=== PATIENT | male | born 1995 | race Two or more races ===

== ENCOUNTER 2017-11-08 23:12 | Emergency (ER) | payer OTHER ==
[2017-11-08] MEDS ORDERED: ALBUTEROL INH PREPACK MDI TAKEHOME ONE (23:27)
--- NOTE | 2017-11-08 23:30 | EDPHY ---
H & P Stated Complaint: SOB, heart feels off Time Seen by Provider: 11/08/17 23:22 HPI/ROS: Chief Complaint: Shortness of breath, cough, chest tightness HPI: 21-year-old male presenting with 2 weeks of worsening tightness in his chest with a dry nonproductive cough. Patient states that he had a similar episode a few years ago and was given an inhaler. Cough is dry nonproductive. No fevers or chills. She nasal after removed from increasing tightness in his chest. No dyspnea on exertion. Does not have a family history of coronary artery disease or sudden cardiac . No leg pain or swelling. No periods of immobility. Chest tightness is about a 2/10 right now. ROS: 10 point Review of Systems is negative except as noted in the HPI. PMH: Denies Social History: No smoking, no alcohol, no recreational drug use Family History: non-contributory Physical Exam: Gen: Awake, Alert, No Distress HEENT: Nose: no rhinorrhea Eyes: PERRLA, EOMI Mouth: Moist mucosa Neck: Supple, no JVD Chest: nontender, lungs clear to auscultation, prolonged expiration, he does have wheezing with forced expiration. Heart: S1, S2 normal, no murmur Abd: Soft, non-tender, no guarding Back: no CVA tenderness, no midline tenderness Ext: no edema, non-tender Skin: no rash Neuro: CN II-XII intact, Sensation grossly intact, Strength 5/5 in bilateral upper and lower extremities - Personal History Current Tetanus Diphtheria and Acellular Pertussis (TDAP): Yes - Medical/Surgical History Hx Asthma: Yes Hx Chronic Respiratory Disease: No Hx Diabetes: No Hx Cardiac Disease: No Hx Renal Disease: No Hx Cirrhosis: No Hx Alcoholism: No Hx HIV/AIDS: No Hx Splenectomy or Spleen Trauma: No Other PMH: lactose intolerant - Social History Smoking Status: Never smoked Constitutional: Initial Vital Signs Temperature (C) 37.1 C 11/08/17 23:16 Heart Rate 81 11/08/17 23:16 Respiratory Rate 20 11/08/17 23:16 Blood Pressure 158/79 H 11/08/17 23:16 O2 Sat (%) 95 11/08/17 23:16 O2 Delivery Mode Room Air Allergies/Adverse Reactions: No Known Allergies Allergy (Verified 11/08/17 23:15) Medical Decision Making - Diagnostics EKG Interpretation: ECG time 11:28 p.m., sinus rhythm with a rate of 91, normal axis, normal intervals, no acute ST or T-wave changes. Impression: Normal ECG. ED Course/Re-evaluation: Patient is improved. Patient's lungs are clear after albuterol. ECG is normal. Will discharge with follow-up with primary care physician for formal pulmonary function test. - Data Points Medications Given: Discontinued Medications Albuterol Sulfate (Proventil Inh Prepack) 1 mdi RUCHI SPEAR ONE Stop: 11/08/17 23:28 Last Admin: 11/08/17 23:32 Dose: 1 mdi Departure - Departure Disposition: Home, Routine, Self-Care Clinical Impression: Acute bronchitis Condition: Good Instructions: Albuterol (By breathing), Acute Bronchitis (ED) Additional Instructions: May use the albuterol inhaler 1-2 puffs every 4 hr as needed for cough or wheeze. Follow up with primary care physician in 3-4 days for further evaluation. Return to the emergency department for increasing chest tightness, cough, fevers , chills, difficulty breathing, or any other concerns. Referrals: Zandra Porter DO [Primary Care Provider] - As per Instructions
--- NOTE | 2017-11-08 23:30 | CPEKG ---
Heart Rate: 91 RR Interval: 659 P-R Interval: 140 QRSD Interval: 84 QT Interval: 344 QTC Interval: 424 P [place]: 39 QRS [place]: 69 T Wave [place]: 16 EKG Severity - BORDERLINE ECG - EKG Impression: SINUS RHYTHM EKG Impression: PROBABLE LEFT ATRIAL ABNORMALITY Electronically Signed By: Jeffrey Evans 09-Nov-2017 01:06:32
[2017-11-09 00:17] VITALS: BP 118/60
== END 2017-11-09 00:33 | disposition home or self-care (01) ==
DX: J20.9 Acute bronchitis, unspecified (principal); J45.909 Unspecified asthma, uncomplicated

== ENCOUNTER 2018-07-04 00:18 | Emergency (ER) | payer OTHER ==
--- NOTE | 2018-07-04 00:24 | EDPHY ---
H & P Stated Complaint: L ankle/foot pain, no trauma, hurts worse when flexed Time Seen by Provider: 07/04/18 00:24 HPI/ROS: HPI CHIEF COMPLAINT: Left lateral foot pain. HISTORY OF PRESENT ILLNESS: Patient is a 22-year-old male, otherwise healthy denies any significant medical history presents emergency room left lateral foot pain. Worse when he bears weight on it. Specifically is focally tender over the 4th and 5th metatarsal heads. There is no evidence of external trauma or swelling to this. He denies any traumatic injury. States been bothering for 2 days. Progressively getting worse. Worse when he bears weight. Good sensation, good cap refill, good distal pulse. Past Medical History: Denies significant medical history Past Surgical History: Denies significant surgical history Social History: Denies drugs alcohol tobacco. Family History: Noncontributory PCP [facility]. ROS REVIEW OF SYSTEMS: 10 Systems were reviewed and negative with the exception of the elements mentioned in the history of present illness. Exam Constitutional triage nursing summary reviewed, vital signs reviewed, awake/ alert. Eyes normal conjunctivae and sclera, EOMI, PERRLA. HENT normal inspection, atraumatic, moist mucus membranes, no epistaxis, neck supple/ no meningismus, no raccoon eyes. Respiratory clear to auscultation bilaterally, normal breath sounds, no respiratory distress, no wheezing. Cardiovascular rate normal, regular rhythm, no murmur, no edema, distal pulses normal. Gastrointestinal soft, non-tender, no rebound, no guarding, normal bowel sounds, no distension, no pulsatile mass. Genitourinary no CVA tenderness. Musculoskeletal no midline vertebral tenderness, full range of motion, no calf swelling, no tenderness of extremities, no meningismus, good pulses, neurovascularly intact. Skin pink, warm, & dry, no rash, skin atraumatic. Neurologic awake, alert and oriented x 3, AAOx3, moves all 4 extremities equally, motor intact, sensory intact, CN II-XII intact, normal cerebellar, normal vision, normal speech. Psychiatric normal mood/affect. Heme/Lymph/Immune no lymphadenopathy. Differential Diagnosis: Includes but is not limited to in a particular order foot sprain, foot contusion, stress fracture, tendinitis, plantar fasciitis Medical Decision Making: Plan for this patient x-ray left foot three view, ibuprofen 800 mg for pain control, ice pack, and re-evaluate. Re-evaluation: X-ray of the left foot reviewed by myself. Negative for acute traumatic injury specifically no fracture over the 4th and 5th metatarsal heads or metatarsals visualized. Noted patient has a high arch on x-ray exam. Is possibly is having foot pain from stress placed on his left foot. High arch. Will provide him with crutches and walking boot. I do recommend he follows Up with his primary care doctor. Additionally the patient is wearing very flat shoes including flat sandals and flat shoes at home. He does have a very high arch on exam. I do recommend crutches, walking boot. Additionally recommend anti-inflammatory pain medicine, keeping foot elevated. I do recommend he gets new shoes that are not flat. - Personal History Current Tetanus Diphtheria and Acellular Pertussis (TDAP): Yes - Medical/Surgical History Hx Asthma: Yes Hx Chronic Respiratory Disease: No Hx Diabetes: No Hx Cardiac Disease: No Hx Renal Disease: No Hx Cirrhosis: No Hx Alcoholism: No Hx HIV/AIDS: No Hx Splenectomy or Spleen Trauma: No Other PMH: lactose intolerant - Social History Smoking Status: Never smoked Constitutional: Initial Vital Signs Temperature (C) 36.9 C 07/04/18 00:22 Heart Rate 105 H 07/04/18 00:22 Respiratory Rate 18 07/04/18 00:22 Blood Pressure 144/80 H 07/04/18 00:22 O2 Sat (%) 98 07/04/18 00:22 O2 Delivery Mode Room Air Allergies/Adverse Reactions: No Known Allergies Allergy (Verified 07/04/18 00:23) Medical Decision Making - Data Points Medications Given: Discontinued Medications Ibuprofen (Motrin) 800 mg PO EDNOW ONE Stop: 07/04/18 00:36 Last Admin: 07/04/18 00:41 Dose: 800 mg Departure - Departure Disposition: Home, Routine, Self-Care Clinical Impression: Foot sprain Qualifiers: Encounter type: initial encounter Laterality: left Qualified Code(s): S93.602A - Unspecified sprain of left foot, initial encounter Condition: Good Instructions: Foot Contusion (ED) Additional Instructions: 1. Recommend ice. 2. Recommend anti-inflammatory pain medicine. Alternate Tylenol and/or Motrin every 6-8 hours. 3. Walking boot and crutches for pain control and help and assistance. 4. Follow up with your primary care doctor 5. Additionally obtain new shoes with a higher arch. Or shoe inserts this may help support your foot better. Referrals: [facility],. [Clinic] - As per Instructions
[2018-07-04] MEDS ORDERED: IBUPROFEN 800 MG TAB PO ONE (00:35)
[2018-07-04 02:11] VITALS: BP 142/87
== END 2018-07-04 02:11 | disposition home or self-care (01) ==
DX: S93.602A Unspecified sprain of left foot, initial encounter (principal)
CPT/HCPCS: L4386